=== PATIENT | female | born 1950 | race Caucasian/White ===

== ENCOUNTER 2023-09-13 17:17 | Emergency (ER) | payer MEDICARE, BC, SELFPAY ==
[2023-09-13 17:30] VITALS: BP 120/67
[2023-09-13 17:48] VITALS: BMI 23.1
[2023-09-13] MEDS: DILAUDID 1 MG PO (21:11)
[2023-09-13] MEDS: TORADOL 15 MG IM (21:12)
--- NOTE | 2023-09-13 21:12 | ED.GENMED ---
History of Present Illness
General
Chief Complaint: Back Pain
Source: patient
Exam Limitations: none
Time Seen by Provider: 09/13/23 20:14
Nursing documentation reviewed up to this point in time: agreed with
History of Present Illness
History of Present Illness:
73 y/o F with h/o previous vasculitis (no immune suppressants)
h/o arthritis in spine
here with back pain x 2 days ago that started L lumbar region going into buttocks and down the front of her left leg to the knee after walking the dog
she is visiting from [place] and has beeen here for a ew months
she is pl[place]ig [place] [facility] [place] 2 [place]
pt says she didn't injure hersel but recalls the dog pulling her and she ws holding the leash in the L arm
pt used her tens unit and thinks she made it worse
she has not had any numbness in her leg, weakness, incontinence, dysuria, fefver, chills, skin changes
she used to be on [facility] steroisd but has been off for years
she has tramadols he takes for chronic leg pain, but only 1 time a day usually as needed
pt started doing a tylenol/ibuprofen combo med 2 times a day and tramado mid day
pt says currently the pain is a little better than it was
worse with ambulation, changing positions, movement
Past History
Past History
ED Past Medical History: Other (vasculitis)
ED Past Surgical History: Gynecological, Tonsilectomy and Urological (bladder lift)
Social History
Tobacco: Non-smoker
Living: with family
Review of Systems
Review of Systems
Allergies reviewed?: Yes
All Other Systems: Not applicable
Phy Exam
Physical Exam
Physical Exam:
GENERAL: Alert , in no apparent distress, comfortable at rest
CARDIAC: Regular rate and rhythm, no edema
LUNGS: Clear breath sounds bilaterally, no acute respiratory distress, no wheezes/rales/rhonchi
ABDOMEN: Soft, without focal tenderness, no r/g, no cvat, normal bowel sounds, nondistended
NEUROLOGICAL: Alert and oriented, no focal neuro deficits, CN intact, 5/5 strength, sensation intact, ambulation slight limp left leg
SKIN: Warm and dry, no rash noted b/l LE
MUSCULOSKELETAL: No edema, well perfused. Normal inspection of the left hip, left leg
Patient has no tenderness to palpation of the hip, minimal tenderness in the SI joint
sHe has mild pain with flexion of the left hip, external rotation, but with internal rotation has discomfort
Back: No midline tenderness, mild dextroscoliosis, slight left paraspinal muscle tenderness on exam, no swelling
nstraight leg raise pos 30 degrees, radiation into anterior thigh
no weakness
PSYCH: Normal and appropriate interaction.
Course
Orders/Labs/Results
Orders:
Orders
09/13/23 17:49
CR Lumbar Spine Comp Min 4 Vw* Urgent
Comment:
Reason For Exam: pain
09/13/23 18:44
CR Hip - LT w/wo Pel 2-3 Vw* Urgent
Reason For Exam: pain
09/13/23 20:59
HYDROmorphone [Dilaudid] 1 mg PO NOW STA
Ketorolac [Toradol] 15 mg IM NOW STA
Vital Signs
Initial and Last Documented VS:
Initial Vital Signs
Temp Pulse Resp BP Pulse Ox
98.2 F 76 16 120/67 98
09/13/23 17:30 09/13/23 17:30 09/13/23 17:30 09/13/23 17:30 09/13/23 17:30
Last Documented Vital Signs
Temp Pulse Resp BP Pulse Ox
98.2 F 72 18 143/76 99
09/13/23 17:30 09/13/23 21:17 09/13/23 21:17 09/13/23 21:17 09/13/23 21:17
MDM/Problems Addressed
Differential Diagnosis Includes:
lumbar radiculopathy, sciatica, arthritis
MDM/Problems Addressed:
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
hre with back pain after walking the dog that was pulling her
she has not had any falls
no eweknaess, numbness, incontiinece, fever, chills, urinary symptoms
pain is positional
couldn't get cofmfortable earlier, pedro last night
has had previous MRI 2022 for back pain showing spinal stneosis
on exam pt has L SI joint tenerness
mild straight lg raise on L
neuro intact
able to ambulate
pt is very concerned about her pain worsening
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
no other findings
pt is allowed to take NSAIDS
will give shot of toraodl
discussed prenidsone but she wants to ask her glaze supervisor first
so she will ask him tomorrow before starting it
up the tramadl to 3 times a day for pain
tylenol 3 times a day
+ or - the pred OR ibuprofen
return precautiosn
*Critical Care Note
Total Time (30-74mins, 75-104mins- exclusive of procedures): Not Applicable
ED Attending Note
-
Portions of this chart may have been created with voice recognition software.� Occasional wrong word or��sound alike� substitutions may have occurred due to the inherent limitations of voice recognition software.
Discharge Plan
Departure
Patient Disposition: Home (Routine Discharge)
Date of Disposition: 09/13/23
Time of Disposition: 21:18
Patient with high blood pressure during this ER visit?: No
Covid-19: Not Applicable
Discharge Problem:
Acute left lumbar radiculopathy
Instructions: Radiculopathy (DC)
Prescriptions:
New
prednisone 20 mg tablet
40 mg PO DAILY 5 Days Qty: 10 0RF
No Action
alendronate [Fosamax] 5 MG tablet
PO DAILY
sulfamethoxazole-trimethoprim 1 TABLET tablet
1 tab PO NOW
tramadol 50 MG tablet
PO
sennosides [Perdiem Overnight Relief] 15 MG tablet
15 mg PO DAILY
guaifenesin [Mucinex] 1,200 MG tablet extended release 12hr
PO DAILY
cannabidiol [Epidiolex] 1 UNIT solution
1 unit PO DAILY
ondansetron 4 MG tablet,disintegrating
4 mg PO TIDPRN PRN (Reason: nausea/vomiting) Qty: 15 0RF
valacyclovir 1,000 MG tablet
1,000 mg PO TID Qty: 21 0RF
Referrals:
UNKNOWN - PT DOES,NOT KNOW [Family Provider] -
Activity Restrictions/Additional Instructions:
YOUR BAKC PAIN MAY BE FROM RADICULOPATHY
YOU COULD HAVE A DISC HERNIATION OR SCIATICA
TRY EITHER REGIMEN:
1. TYLENOL 3 TIMES A DAY (2 REGULAR STRENGTH); IBUPROFEN 400 MG 3 TIMES A AY WITH FOOD; TRAMADOL 3 TIMES A DAY NEEDED FOR WORSE PAIN
OR
2. TYLENOL 3 TIMES A DAY (2 REGULAR STRENGTH); PREDNISONE 40 MG ONCE A DAY FOR 5 DAYS IN THE MORNING; TRAMADOL 3 TIMES A DAY NEEDED FOR WORSE PAIN
YOU CAN CALL [phone] AFTER 10 AM TOMORROW IF YOU HAVE ANY QUESTIONS
MY NAME IS ADRIANE BURNETT, I'M A PA
RETURN FOR: FOOT DROP, WEAKNESS, RASH, FEVER, INABILITY TO WALK, SEVERE PAIN, INCONTINENCE, NUMBNESS OR ANY CONCENRS.
OTHERWISE ASK YOUR ACID TENDER ABOUT THE PREDNISONE
YOU SHOULDN'T NEED ANYTHING ELSE FOR PAIN TONIGHT
IF YOU DO, TAKE A DOSE OF TYLENOL
Interventions
Interventions:
*Risk Screen - Suicide Last Done: 09/13/23 17:48
*General Assessment Last Done: 09/13/23 17:48
*Neglect/Abuse Screening Last Done: 09/13/23 17:48
ED- Fall Risk Assessment Last Done: 09/13/23 17:48
*ED COVID-19 Vaccine History Last Done: 09/13/23 17:48
*Nursing Disposition Last Done: 09/13/23 21:28
ED-Musculoskeletal Assessment Last Done: 09/13/23 17:48
Discharge Date and Time
Discharge Date/Time: 09/13/23 21:30
Print Language: GERMAN
[2023-09-13 21:17] VITALS: BP 143/76
== END 2023-09-13 21:30 | disposition home or self-care (01) ==
LOC: EMR 17:17
PROVIDERS: EMERGENCY PHYSICIAN Student in an Organized Health Care Education/Training Program
DX: M54.16 Radiculopathy, lumbar region (principal); I77.6 Arteritis, unspecified
CPT/HCPCS: 99283; 96372; 72110; 73502

== ENCOUNTER → 2025-02-13 08:04 | Outpatient (REF) | payer MEDICARE, BC, SELFPAY | LOC: WDC 08:04 | PROVIDERS: ATTENDING PHYSICIAN Obstetrics & Gynecology Gynecology; FAMILY PHYSICIAN Obstetrics & Gynecology | DX: R92.8 Other abnormal and inconclusive findings on diagnostic imaging of breast (principal) | CPT/HCPCS: 76642 ==